=== PATIENT | female | born 1990 | race Caucasian/White ===

== ENCOUNTER 2017-10-12 17:48 | Day surgery (SDC) | payer OTHER ==
[2017-10-12] MEDS ORDERED: HYDROmorphone 0.5 MG/0.5 ML SYRINGE IVPUSH ONE (18:07)
[2017-10-12] MEDS ORDERED: Sodium Chloride 0.9% 1,000 ML IV ONE (18:07)
--- NOTE | 2017-10-12 18:40 | EDM.PDOC ---
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 Patient is approximately 11 weeks . Last menstrual cycle was July 23, 2017. She states this past Tuesday developed some menstrual-like bleeding. Last night at approximately 2130 developed worsening pain to the right lower quadrant with heavy vaginal bleeding. Patient's been saturating 1 pad per hour since onset last night. She was slightly dizzy with standing and ambulation. Pale in color with admission. She has no history of ectopic pregnancies. She has no history of STDs. hx. . Pain is sharp in nature moderate to severe in intensity. Her blood type is B+. She has not been evaluated by WHEEL ADJUSTER specialist since finding out she was . 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 Denies: Vomiting : Denies: Dysuria Skin: Reports: Pallor Neurological: Reports: Dizziness ED EXAM - Physical Exam Exam: See Below Exam Limited By: No Limitations General Appearance: Alert, WD/WN, Mild Distress Ears: Hearing Grossly Normal Nose: Normal Inspection Throat/Mouth: Normal Voice, No Airway Compromise Neck: Normal Inspection, Supple Respiratory/Chest: No Respiratory Distress, Lungs Clear, Normal Breath Sounds Cardiovascular: Normal Peripheral Pulses, Tachycardia GI/Abdominal Exam: Normal Bowel Sounds, Soft, No Organomegaly, No Distention, Tender (Right adnexa region: moderate to severe in nature with palpation. Mild pain to the suprapubic region. ) (Female) Exam: Other (Per nursing staff. Pad in place saturaing through underwear. ) Extremities: Normal Inspection Neurological: Alert, Oriented, CN II-XII Intact, Normal Cognition, No Motor/ Sensory Deficits Psychiatric: Normal Affect, Normal Mood Skin Exam: Warm, Dry, Intact, Normal Color Course - Vital Signs Last Recorded V/S: Last Vital Signs Temp 97.9 F 10/12/17 21:45 Pulse 69 10/12/17 21:45 Resp 13 10/12/17 21:45 BP 105/66 10/12/17 21:45 Pulse Ox 100 10/12/17 21:45 - Orders/Labs/Meds Orders: Active Orders 24 hr Category Date Time Status Patient Status [ADT] Routine ADT 10/12/17 19:20 Active Ambulate [RC] PER UNIT ROUTINE Care 10/12/17 20:41 Active Communication Order [RC] ROUTINE Care 10/12/17 20:35 Active Cooling Warming Measures [RC] ASDIRECTED Care 10/12/17 20:35 Active Notify Provider [RC] ASDIRECTED Care 10/12/17 20:35 Active Notify Provider [RC] ASDIRECTED Care 10/12/17 20:42 Active Oxygen Therapy [RC] ASDIRECTED Care 10/12/17 20:35 Active Pulse Oximetry [RC] ASDIRECTED Care 10/12/17 20:35 Active Ready for Discharge [RC] PER UNIT ROUTINE Care 10/12/17 20:45 Active Regular Diet [DIET] Diet 10/13/17 Breakfast Active PACKED CELLS [RED BLOOD CELLS LP] [BBK] Stat Lab 10/12/17 18:10 Results TYPE AND SCREEN [BBK] Stat Lab 10/12/17 18:10 Results UA W/MICROSCOPIC [URIN] Stat Lab 10/12/17 18:06 Ordered Acetaminophen/oxyCODONE [Percocet 325-5 MG] Med 10/12/17 20:42 Active 2 tab PO Q4H PRN HYDROmorphone [Dilaudid] Med 10/12/17 20:36 Active 0.5 mg IVPUSH ONETIME PRN Ondansetron [Zofran] Med 10/12/17 20:35 Active 4 mg IVPUSH ONETIME PRN Ondansetron [Zofran] Med 10/12/17 20:42 Active 4 mg IVPUSH Q4H PRN Phenylephrine [Rufus-Synephrine] 1 mg Med 10/12/17 20:45 Active Sodium Chloride 0.9% [Normal Saline] 10 ml IV TITRATE ePHEDrine [ePHEDrine Sulfate] Med 10/12/17 20:35 Active 5 mg IVPUSH ASDIRECTED PRN fentaNYL [Sublimaze] Med 10/12/17 20:35 Active 50 mcg IVPUSH Q5M PRN Schedule Procedure [COMM] Stat Oth 10/12/17 19:18 Ordered Sequential Compression Device [OM.PC] Routine Oth 10/12/17 20:42 Ordered Transfuse Red Blood Cells [COMM] Stat Oth 10/12/17 19:14 Ordered Medication Orders Ephedrine Sulfate (Ephedrine Sulfate) 5 mg IVPUSH ASDIRECTED PRN PRN Reason: Hypotension Fentanyl (Sublimaze) 50 mcg IVPUSH Q5M PRN PRN Reason: Pain Last Admin: 10/12/17 21:05 Dose: 50 mcg Hydromorphone HCl (Dilaudid) 0.5 mg IVPUSH ONETIME PRN PRN Reason: Pain Last Admin: 10/12/17 21:03 Dose: 0.5 mg Phenylephrine HCl 1 mg/ Sodium (Chloride) 10.1 mls @ 1 mls/sec IV TITRATE PAUL; Protocol Ondansetron HCl (Zofran) 4 mg IVPUSH ONETIME PRN PRN Reason: Nausea/Vomiting Ondansetron HCl (Zofran) 4 mg IVPUSH Q4H PRN PRN Reason: Nausea Oxycodone/Acetaminophen (Percocet 325-5 Mg) 2 tab PO Q4H PRN PRN Reason: Pain Last Admin: 10/12/17 22:38 Dose: 2 tab Labs: Laboratory Tests 10/12/17 10/12/17 10/12/17 Range/Units 18:10 18:10 18:10 WBC 11.36 H (3.98-10.04) K/mm3 RBC 3.66 L (3.98-5.22) M/mm3 Hgb 10.7 L (11.2-15.7) gm/L Hct 32.0 L (34.1-44.9) % MCV 87.4 (79.4-94.8) fl MCH 29.2 (25.6-32.2) pg MCHC 33.4 (32.2-35.5) g/dl RDW Std Deviation 41.8 (36.4-46.3) fL Plt Count 244 (182-369) K/mm3 MPV 10.1 (9.4-12.3) fl Neutrophils % (Manual) 88 H (40-60) % Band Neutrophils % 0 (0-10) % Lymphocytes % (Manual) 8 L (20-40) % Atypical Lymphs % 0 % Monocytes % (Manual) 3 (2-10) % Eosinophils % (Manual) 1 (0.7-5.8) % Basophils % (Manual) 0 L (0.1-1.2) Toxic Granulation 1+ slight Platelet Estimate Adequate Plt Morphology Comment Normal RBC Morph Comment Normal PT (9.5-12.1) SECONDS INR APTT (24-31) SECONDS Sodium 138 (136-145) mEq/L Potassium 3.4 L (3.5-5.1) mEq/L Chloride 106 (98-107) mEq/L Carbon Dioxide 21 (21-32) mEq/L Anion Gap 14.4 (5-15) BUN 15 (7-18) mg/dL Creatinine 0.7 (0.55-1.02) mg/dL Est Cr Clr Drug Dosing 104.65 mL/min Estimated GFR (MDRD) > 60 (>60) mL/min BUN/Creatinine Ratio 21.4 H (14-18) Glucose 132 H (74-106) mg/dL Calcium 8.5 (8.5-10.1) mg/dL Total Bilirubin 0.4 (0.2-1.0) mg/dL AST 16 (15-37) U/L ALT 23 (14-59) U/L Alkaline Phosphatase 53 (46-116) U/L Total Protein 6.8 (6.4-8.2) g/dl Albumin 3.6 (3.4-5.0) g/dl Globulin 3.2 gm/dL Albumin/Globulin Ratio 1.1 (1-2) Progesterone ng/mL HCG, Quant 893.0 mIU/mL Blood Type B POSITIVE Gel Antibody Screen Negative Crossmatch See Detail 10/12/17 10/12/17 Range/Units 18:10 18:10 WBC (3.98-10.04) K/mm3 RBC (3.98-5.22) M/mm3 Hgb (11.2-15.7) gm/L Hct (34.1-44.9) % MCV (79.4-94.8) fl MCH (25.6-32.2) pg MCHC (32.2-35.5) g/dl RDW Std Deviation (36.4-46.3) fL Plt Count (182-369) K/mm3 MPV (9.4-12.3) fl Neutrophils % (Manual) (40-60) % Band Neutrophils % (0-10) % Lymphocytes % (Manual) (20-40) % Atypical Lymphs % % Monocytes % (Manual) (2-10) % Eosinophils % (Manual) (0.7-5.8) % Basophils % (Manual) (0.1-1.2) Toxic Granulation Platelet Estimate Plt Morphology Comment RBC Morph Comment PT 10.5 (9.5-12.1) SECONDS INR 0.96 APTT 27 (24-31) SECONDS Sodium (136-145) mEq/L Potassium (3.5-5.1) mEq/L Chloride (98-107) mEq/L Carbon Dioxide (21-32) mEq/L Anion Gap (5-15) BUN (7-18) mg/dL Creatinine (0.55-1.02) mg/dL Est Cr Clr Drug Dosing mL/min Estimated GFR (MDRD) (>60) mL/min BUN/Creatinine Ratio (14-18) Glucose (74-106) mg/dL Calcium (8.5-10.1) mg/dL Total Bilirubin (0.2-1.0) mg/dL AST (15-37) U/L ALT (14-59) U/L Alkaline Phosphatase (46-116) U/L Total Protein (6.4-8.2) g/dl Albumin (3.4-5.0) g/dl Globulin gm/dL Albumin/Globulin Ratio (1-2) Progesterone 1.99 ng/mL HCG, Quant mIU/mL Blood Type Gel Antibody Screen Crossmatch Meds: Medications Generic Name Dose Route Start Last Admin Trade Name Freq PRN Reason Stop Dose Admin Ephedrine Sulfate 5 mg 10/12/17 20:35 Ephedrine Sulfate IVPUSH ASDIRECTED PRN Hypotension Fentanyl 50 mcg 10/12/17 20:35 10/12/17 21:05 Sublimaze IVPUSH 50 mcg Q5M PRN Administration Pain Hydromorphone HCl 0.5 mg 10/12/17 20:36 10/12/17 21:03 Dilaudid IVPUSH 0.5 mg ONETIME PRN Administration Pain Phenylephrine HCl 1 mg/ Sodium 10.1 mls @ 1 mls/sec 10/12/17 20:45 Chloride IV TITRATE PAUL Protocol Ondansetron HCl 4 mg 10/12/17 20:35 Zofran IVPUSH ONETIME PRN Nausea/Vomiting Ondansetron HCl 4 mg 10/12/17 20:42 Zofran IVPUSH Q4H PRN Nausea Oxycodone/Acetaminophen 2 tab 10/12/17 20:42 10/12/17 22:38 Percocet 325-5 Mg PO 2 tab Q4H PRN Administration Pain Discontinued Medications Generic Name Dose Route Start Last Admin Trade Name Freq PRN Reason Stop Dose Admin Bupivacaine HCl Confirm 10/12/17 20:00 10/12/17 19:59 Marcaine 0.5% Administered 10/12/17 20:01 10 ml Dose Administration 30 ml .ROUTE .STK-MED ONE Cefazolin Sodium Confirm 10/12/17 19:21 Ancef Administered 10/12/17 19:22 Dose 2 gm .ROUTE .STK-MED ONE Dexamethasone Confirm 10/12/17 19:21 Dexamethasone Administered 10/12/17 19:22 Dose 20 mg .ROUTE .STK-MED ONE Etomidate Confirm 10/12/17 19:38 Amidate Administered 10/12/17 19:39 Dose 40 mg IVPUSH .STK-MED ONE Fentanyl Confirm 10/12/17 19:22 Sublimaze Administered 10/12/17 19:23 Dose 250 mcg .ROUTE .STK-MED ONE Glycopyrrolate Confirm 10/12/17 20:14 Administered 10/12/17 20:15 Dose 1 mg .ROUTE .STK-MED ONE Hydromorphone HCl 0.5 mg 10/12/17 18:07 10/12/17 18:20 Dilaudid IVPUSH 10/12/17 18:08 0.5 mg ONETIME ONE Administration Hydromorphone HCl Confirm 10/12/17 21:04 10/12/17 22:28 Dilaudid Administered 10/12/17 21:05 Not Given Dose 0.5 mg .ROUTE .STK-MED ONE Sodium Chloride 1,000 mls @ 250 mls/hr 10/12/17 18:07 10/12/17 18:20 Normal Saline IV 10/12/17 22:06 250 mls/hr ONETIME ONE Administration Sodium Chloride Confirm 10/12/17 18:47 10/12/17 22:27 Normal Saline Administered 10/12/17 18:48 Not Given Dose 1,000 mls @ as directed .ROUTE .STK-MED ONE Lidocaine HCl Confirm 10/12/17 19:21 Xylocaine-Mpf 1% Administered 10/12/17 19:22 Dose 4 mls @ as directed .ROUTE .STK-MED ONE Lactated Ringer's Confirm 10/12/17 19:21 Ringers, Lactated Administered 10/12/17 19:22 Dose 2,000 mls @ as directed .ROUTE .STK-MED ONE Ketamine HCl Confirm 10/12/17 19:55 Ketalar Administered 10/12/17 19:56 Dose 500 mg .ROUTE .STK-MED ONE Ketorolac Tromethamine Confirm 10/12/17 19:21 Toradol Administered 10/12/17 19:22 Dose 30 mg .ROUTE .STK-MED ONE Midazolam HCl Confirm 10/12/17 19:22 Versed 1 Mg/Ml Administered 10/12/17 19:23 Dose 2 mg .ROUTE .STK-MED ONE Neostigmine Methylsulfate Confirm 10/12/17 20:14 Neostigmine Administered 10/12/17 20:15 Dose 5 mg .ROUTE .STK-MED ONE Ondansetron HCl Confirm 10/12/17 19:21 Zofran Administered 10/12/17 19:22 Dose 4 mg .ROUTE .STK-MED ONE Phenylephrine HCl Confirm 10/12/17 19:56 Phenylephrine In Ns 100 Mcg/Ml Administered 10/12/17 19:57 Dose 1 mg .ROUTE .STK-MED ONE Propofol Confirm 10/12/17 19:21 Diprivan 20 Ml Administered 10/12/17 19:22 Dose 200 mg .ROUTE .STK-MED ONE Rocuronium Hatch Confirm 10/12/17 19:21 Zemuron Administered 10/12/17 19:22 Dose 50 mg .ROUTE .STK-MED ONE - Re-Assessments/Exams Free Text/Narrative Re-Assessment/Exam: On initial examination patient's blood pressure 110/75 with heart rate of 116. Patient's skin is pink warm and dry. Per nursing staff with standing patient was pale improved with laying flat. 2 x IV's ordered. NS ordered 250mls/hr. Ordered dilaudid 0.5mg IVP. Concerned the patient may have a ruptured ectopic with pain and VS findings. Initial labs include: CBC, C14, HCG, INR, PTT, Type and Screen, UA, OB transvaginal ultrasound. I did speak with Dr. Ortiz at 181. Requested progesterone level, quantitative hCG, and ultrasound be obtained. Notify him if any changes and results. 1814 reassessment, blood pressure 98/67 heart rate 98. This was after administration of the Dilaudid. Patient states pain is improving. She is alittle bit dizzy. Color remains good. 1827 I was asked to come to the patients room since she was decompensating. Upon examination patient is pale responsive only to painful stimuli. BP reading 75 systolic, HR 54. Patient placed into trendelenburg with IVF's 2 liters placed on pressure infusers wide open. With Inversion patients loc inproved. Color remains poor. Vaginal bleeding per nursing staff has increased. Patient moved to room 2. I have called Dr. Ortiz due to patient decompensating. Ordered type and cross 2 units. 1844 Reassessment, patient's blood pressure 99/62 heart rate 83 SPO2 100%. Dr. Ortiz is present at patients bedside. 19:07 Dr. Ortiz will be taking the patient to surgery to evaluate for ectopic . Departure - Departure Time of Disposition: 19:07 Disposition: DC/Tfer to Critical Access 66 Condition: Fair Clinical Impression: Vaginal bleeding during , Adnexal tenderness, right, Hemorrhagic shock - Discharge Information - My Orders Last 24 Hours: My Active Orders 10/12/17 18:06 UA W/MICROSCOPIC [URIN] Stat 10/12/17 18:10 PACKED CELLS [RED BLOOD CELLS LP] [BBK] Stat TYPE AND SCREEN [BBK] Stat 10/12/17 19:14 Transfuse Red Blood Cells [COMM] Stat - Assessment/Plan Last 24 Hours: My Active Orders 10/12/17 18:06 UA W/MICROSCOPIC [URIN] Stat 10/12/17 18:10 PACKED CELLS [RED BLOOD CELLS LP] [BBK] Stat TYPE AND SCREEN [BBK] Stat 10/12/17 19:14 Transfuse Red Blood Cells [COMM] Stat
[2017-10-12] MEDS ORDERED: Sodium Chloride 0.9% 1,000 ML ONE (18:47)
--- NOTE | 2017-10-12 19:12 | PCM.PREANE ---
Preanesthetic Assessment - Anesthesia/Transfusion/Family Hx Anesthesia History: Prior Anesthesia Without Reaction Family History of Anesthesia Reaction: No Transfusion History: No Prior Transfusion(s) Intubation History: Unknown - Review of Systems General: No Symptoms Pulmonary: No Symptoms Cardiovascular: No Symptoms Gastrointestinal: No Symptoms Neurological: No Symptoms Other: Reports: None - Physical Assessment NPO Status Date: 10/11/17 Pulse: 116 O2 Sat by Pulse Oximetry: 100 Respiratory Rate: 20 Blood Pressure: 110/75 Temperature: 37.4 C Vital Signs: Last Vital Signs Temp 37.4 C 10/12/17 18:03 Pulse 116 H 10/12/17 18:03 Resp 20 10/12/17 18:03 BP 110/75 10/12/17 18:03 Pulse Ox 100 10/12/17 18:03 Height: 1.63 m Weight: 54.431 kg ASA Class: 3E Mental Status: Alert & Oriented x3 Airway Class: Mallampati = 2 Dentition: Reports: Normal Dentition, Caries Thyro-Mental Finger Breadths: 3 Mouth Opening Finger Breadths: 3 ROM/Head Extension: Full Lungs: Clear to Auscultation, Normal Respiratory Effort Cardiovascular: Regular Rate, Regular Rhythm, No Murmurs - Lab Values: Laboratory Last Values WBC 11.36 K/mm3 (3.98-10.04) H 10/12/17 18:10 RBC 3.66 M/mm3 (3.98-5.22) L 10/12/17 18:10 Hgb 10.7 gm/L (11.2-15.7) L 10/12/17 18:10 Hct 32.0 % (34.1-44.9) L 10/12/17 18:10 MCV 87.4 fl (79.4-94.8) 10/12/17 18:10 MCH 29.2 pg (25.6-32.2) 10/12/17 18:10 MCHC 33.4 g/dl (32.2-35.5) 10/12/17 18:10 RDW Std Deviation 41.8 fL (36.4-46.3) 10/12/17 18:10 Plt Count 244 K/mm3 (182-369) 10/12/17 18:10 MPV 10.1 fl (9.4-12.3) 10/12/17 18:10 Neutrophils % (Manual) 88 % (40-60) H 10/12/17 18:10 Band Neutrophils % 0 % (0-10) 10/12/17 18:10 Lymphocytes % (Manual) 8 % (20-40) L 10/12/17 18:10 Atypical Lymphs % 0 % 10/12/17 18:10 Monocytes % (Manual) 3 % (2-10) 10/12/17 18:10 Eosinophils % (Manual) 1 % (0.7-5.8) 10/12/17 18:10 Basophils % (Manual) 0 (0.1-1.2) L 10/12/17 18:10 Toxic Granulation 1+ slight 10/12/17 18:10 Platelet Estimate Adequate 10/12/17 18:10 Plt Morphology Comment Normal 10/12/17 18:10 RBC Morph Comment Normal 10/12/17 18:10 Sodium 138 mEq/L (136-145) 10/12/17 18:10 Potassium 3.4 mEq/L (3.5-5.1) L 10/12/17 18:10 Chloride 106 mEq/L (98-107) 10/12/17 18:10 Carbon Dioxide 21 mEq/L (21-32) 10/12/17 18:10 Anion Gap 14.4 (5-15) 10/12/17 18:10 BUN 15 mg/dL (7-18) 10/12/17 18:10 Creatinine 0.7 mg/dL (0.55-1.02) 10/12/17 18:10 Est Cr Clr Drug Dosing 104.65 mL/min 10/12/17 18:10 Estimated GFR (MDRD) > 60 mL/min (>60) 10/12/17 18:10 BUN/Creatinine Ratio 21.4 (14-18) H 10/12/17 18:10 Glucose 132 mg/dL (74-106) H 10/12/17 18:10 Calcium 8.5 mg/dL (8.5-10.1) 10/12/17 18:10 Total Bilirubin 0.4 mg/dL (0.2-1.0) 10/12/17 18:10 AST 16 U/L (15-37) 10/12/17 18:10 ALT 23 U/L (14-59) 10/12/17 18:10 Alkaline Phosphatase 53 U/L (46-116) 10/12/17 18:10 Total Protein 6.8 g/dl (6.4-8.2) 10/12/17 18:10 Albumin 3.6 g/dl (3.4-5.0) 10/12/17 18:10 Globulin 3.2 gm/dL 10/12/17 18:10 Albumin/Globulin Ratio 1.1 (1-2) 10/12/17 18:10 HCG, Quant 893.0 mIU/mL 10/12/17 18:10 Blood Type B POSITIVE 10/12/17 18:10 All labs reviewed and noted and within acceptable ranges to proceed. 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 History: 3 vaginal deliveries - SUBSTANCE USE Smoking Status *Q: Never Smoker Recreational Drug Use History: No - HOME MEDS Home Medications: Home Meds Pnv95/Iron Fum/Folic Acid [ Caplet] 1 each PO DAILY 08/15/15 [History] Ibuprofen 600 mg PO Q4H PRN #20 tablet 10/12/17 [Rx] - CURRENT (IN HOUSE) MEDS Current Meds: Current Medications Sodium Chloride (Normal Saline) 1,000 mls @ 250 mls/hr IV ONETIME ONE Stop: 10/12/17 22:06 Last Admin: 10/12/17 18:20 Dose: 250 mls/hr Discontinued Medications Hydromorphone HCl (Dilaudid) 0.5 mg IVPUSH ONETIME ONE Stop: 10/12/17 18:08 Last Admin: 10/12/17 18:20 Dose: 0.5 mg Sodium Chloride (Normal Saline) Confirm Administered Dose 1,000 mls @ as directed .ROUTE .STK-MED ONE Stop: 10/12/17 18:48
[2017-10-12] MEDS ORDERED: Ketorolac 30 MG/ML SDV ONE (19:21)
[2017-10-12] MEDS ORDERED: Lidocaine 1% 4 ML ONE (19:21)
[2017-10-12] MEDS ORDERED: Rocuronium 50 MG/5 ML Vial ONE (19:21)
[2017-10-12] MEDS ORDERED: Ondansetron 4 MG/2 ML SDV ONE (19:21)
[2017-10-12] MEDS ORDERED: Dexamethasone 4 MG/ML 5 ML MDV ONE (19:21)
[2017-10-12] MEDS ORDERED: Propofol 200 MG/20 ML SDV ONE (19:21)
[2017-10-12] MEDS ORDERED: ceFAZolin 1 GM Vial ONE (19:21)
[2017-10-12] MEDS ORDERED: Lactated Ringers 2,000 ML ONE (19:21)
[2017-10-12] MEDS ORDERED: fentaNYL 250 MCG/5 ML SDV ONE (19:22)
[2017-10-12] MEDS ORDERED: Midazolam 1 MG/ML 2 ML SDV ONE (19:22)
--- NOTE | 2017-10-12 19:35 | PCM.LDHP ---
L&D History of Present Illness - General Date of Service: 10/12/17 Admit Problem/Dx: Patient Status Order with Admit Dx/Problem 10/12/17 19:20 Patient Status [ADT] Routine Admission Diagnosis/Problem Admission Diagnosis/Problem Laparotomy 10/12/17 19:28 Cecille is a 27-year-old 4 now para 3003 white female who is evaluated in the emergency room for complaints of right lower quadrant pain, positive test, uterine bleeding in general feeling of unwell. Serum quantitative beta hCG was 893 million units per milliliter. Patient is leaving rather aggressively vaginally. She became hypotensive with an increased pulse rate and her blood pressures to level not obtainable. 2 IVs were started and patient was bolused with 3+ liters of normal saline. With Trendelenburg patient' s blood pressure returned to near normal pulse rate was in the high 90s and low 100s. Patient was alert and oriented after this and was able to give a good history. She reports her last menstrual period to be relatively certain starting on 07/23/2017, not using any control at time of conception. She has had positive symptoms such as fatigue and some breast tenderness. And pain started approximately 2-3 days ago and today patient's been in moderate to severe pain discriminated as 7 on a scale of 10. His right lower quadrant in location. It is sharp in nature. Eating or aggravating factors other than aggravated with activity. Patient last ate yesterday but didn't take some ibuprofen today. This with a sip of water this afternoon. 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 All babies delivered vaginally. Sexually active. No control. No history of STI's or abnormal Pap smears. Allergies: none Medications: none Family history: Mother is alive and well as his father. Patient has 15 siblings which included 8 voice and 7 girls who are alive and well. Paternal grandmother is alive and well. All grandparents are . Paternal grandfather secondary to of heart or lung problem as patient describes it to be related to some smoking. Maternal grandparents demise causes unknown. No anesthesia or bleeding problems noted in the family. Social history patient is . is Olivier. She does not use any significant amounts of alcohol, drugs or tobacco. She lives in [facility]. Review of systems: In general patient is having painright lower quadrant, bleeding and general feeling of unwell. Vascular: No chest pain or exercise intolerance Respiratory: No shortness of breath or infectious symptoms GI: Negative for new. : As per history of present illness Musculoskeletal: Negative Physical exam: Patient's blood pressure was unstable. At one point it was in the 80s over 40s and patient became unresponsive. The 90s to low 100s consistently. Orthostatic changes noted. Patient is afebrile. General patient is a well-developed, well-nourished slender White female who is in moderate to severe distress secondary right lower quadrant pain. She is very pale but is alert and oriented and answers questions appropriately. Skin: Pale but dry and intact HEENT neck and back within normal limits. Lungs are clear with good breath sounds in all alcantar. Cardiovascular exam shows regular rate and rhythm. Exam deferred. Abdomen is flat, soft, very tender with palpation right lower quadrant. No masses or organomegaly are noted on abdominal exam. Positive bowel sounds are present. No exam per I managed shows a moderate amount of blood on the glove and in the vaginal vault. It extends onto the perineum. The uterus is approximately 7 weeks' size, soft, anterior and tender. Left adnexa is within normal limits. Right adnexal shows some masslike effect. This is very tender. Extremities and neurological exam are grossly within normal limits. 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/BYN History: 3 vaginal deliveries Social & Family History - Tobacco Use Smoking Status *Q: Never Smoker - Caffeine Use Caffeine Use: Reports: Coffee, Tea - Recreational Drug Use Recreational Drug Use: No H&P Review of Systems - Review of Systems: Review Of Systems: See Below L&D Exam - Exam Exam: See Below - Vital Signs Vital Signs: Last Vital Signs Temp 37.4 C 10/12/17 19:12 Pulse 116 H 10/12/17 18:03 Resp 20 10/12/17 19:12 BP 110/75 10/12/17 19:12 Pulse Ox 100 10/12/17 19:12 Weight: 54.431 kg - Patient Data Lab Results Last 24 hrs: Laboratory Results - last 24 hr 10/12/17 10/12/17 10/12/17 Range/Units 18:10 18:10 18:10 WBC 11.36 H (3.98-10.04) K/mm3 RBC 3.66 L (3.98-5.22) M/mm3 Hgb 10.7 L (11.2-15.7) gm/L Hct 32.0 L (34.1-44.9) % MCV 87.4 (79.4-94.8) fl MCH 29.2 (25.6-32.2) pg MCHC 33.4 (32.2-35.5) g/dl RDW Std Deviation 41.8 (36.4-46.3) fL Plt Count 244 (182-369) K/mm3 MPV 10.1 (9.4-12.3) fl Neutrophils % (Manual) 88 H (40-60) % Band Neutrophils % 0 (0-10) % Lymphocytes % (Manual) 8 L (20-40) % Atypical Lymphs % 0 % Monocytes % (Manual) 3 (2-10) % Eosinophils % (Manual) 1 (0.7-5.8) % Basophils % (Manual) 0 L (0.1-1.2) Toxic Granulation 1+ slight Platelet Estimate Adequate Plt Morphology Comment Normal RBC Morph Comment Normal Sodium 138 (136-145) mEq/L Potassium 3.4 L (3.5-5.1) mEq/L Chloride 106 (98-107) mEq/L Carbon Dioxide 21 (21-32) mEq/L Anion Gap 14.4 (5-15) BUN 15 (7-18) mg/dL Creatinine 0.7 (0.55-1.02) mg/dL Est Cr Clr Drug Dosing 104.65 mL/min Estimated GFR (MDRD) > 60 (>60) mL/min BUN/Creatinine Ratio 21.4 H (14-18) Glucose 132 H (74-106) mg/dL Calcium 8.5 (8.5-10.1) mg/dL Total Bilirubin 0.4 (0.2-1.0) mg/dL AST 16 (15-37) U/L ALT 23 (14-59) U/L Alkaline Phosphatase 53 (46-116) U/L Total Protein 6.8 (6.4-8.2) g/dl Albumin 3.6 (3.4-5.0) g/dl Globulin 3.2 gm/dL Albumin/Globulin Ratio 1.1 (1-2) HCG, Quant 893.0 mIU/mL Blood Type B POSITIVE Gel Antibody Screen Negative Crossmatch See Detail Result Diagrams: 10/12/17 18:10 10/12/17 18:10 Problem List Initiated/Reviewed/Updated: Yes Orders Last 24hrs: Active Orders 24 hr Category Date Time Status Patient Status [ADT] Routine ADT 10/12/17 19:20 Active INR,PT,PROTHROMBIN TIME [COAG] Stat Lab 10/12/17 18:10 Received PACKED CELLS [RED BLOOD CELLS LP] [BBK] Stat Lab 10/12/17 18:10 Results PROGESTERONE [CHEM] Stat Lab 10/12/17 18:10 Received PTT,PARTIAL THROMBOPLSTIN TIME [COAG] Stat Lab 10/12/17 18:10 Received TYPE AND SCREEN [BBK] Stat Lab 10/12/17 18:10 Results UA W/MICROSCOPIC [URIN] Stat Lab 10/12/17 18:06 Ordered Sodium Chloride 0.9% [Normal Saline] 1,000 ml Med 10/12/17 18:07 Active IV ONETIME Schedule Procedure [COMM] Stat Oth 10/12/17 19:18 Ordered Transfuse Red Blood Cells [COMM] Stat Oth 10/12/17 19:14 Ordered Medication Orders Sodium Chloride (Normal Saline) 1,000 mls @ 250 mls/hr IV ONETIME ONE Stop: 10/12/17 22:06 Last Admin: 10/12/17 18:20 Dose: 250 mls/hr Assessment/Plan Comment:: 1. Abdominal/right pelvic pain, positive test with hCG of 893 mU/mL, masslike effect on bimanual exam, hemodynamically unstable significant vaginal bleeding. Findings and history consistent with a probable right ectopic . Cannot entirely rule out threatened versus inevitable miscarriage. 2. Generally healthy female otherwise 3. B+ blood patient not in need of Rh immunoglobulin Plan: 1. Because of the hemodynamically unstable condition will take to the OR immediately. Recommend laparoscopy, possible salpingectomy, possible laparotomy , possible dilation and curettage. The procedures, risks, benefits, alternatives Latonya discussed with patient and her . They appear to understand and wish to proceed. Consent is signed. 2. DVT prophylaxis with SCDs 3. Infection prophylaxis with Ancef 2 g IV preop 4. Patient has been typed and crossmatched 2 units by ER staff. We'll transfuse hemoperitoneum is apparent.
[2017-10-12] MEDS ORDERED: Etomidate 2 MG/ML 20 ML SDV IVPUSH ONE (19:38)
[2017-10-12] MEDS ORDERED: Ketamine 500 mg/10 ML MDV ONE (19:55)
[2017-10-12] MEDS ORDERED: Phenylephrine/Normal Saline 100 MCG/ML 10 ML Syringe ONE (19:56)
[2017-10-12] MEDS ORDERED: Bupivacaine 0.5% 30 ML SDV ONE (20:00)
[2017-10-12] MEDS ORDERED: Neostigmine Methylsulfate 1 MG/ML 5 ML Syringe ONE (20:14)
[2017-10-12] MEDS ORDERED: fentaNYL 100 MCG/2 ML SDV IVPUSH PRN (20:35)
[2017-10-12] MEDS ORDERED: Ondansetron 4 MG/2 ML SDV IVPUSH PRN ×2 (20:35→20:42)
[2017-10-12] MEDS ORDERED: ePHEDrine 50 MG/ML SDV IVPUSH PRN (20:35)
[2017-10-12] MEDS ORDERED: HYDROmorphone 0.5 MG/0.5 ML SYRINGE IVPUSH PRN (20:36)
--- NOTE | 2017-10-12 20:41 | PCM.OPNOTE ---
- General Post-Op/Procedure Note Date of Surgery/Procedure: 10/12/17 Operative Procedure(s): Laparoscopy, dilation and suction curettage Findings: On laparoscopy the uterus tubes and ovaries appeared be normal. There is no evidence of ectopic or tubal prudency. Anterior posterior cul-de-sac was unremarkable. The appendix appeared flaccid and noninflamed. Liver edges on right and left lobe were unremarkable and without inflammation. Evidence of ectopic present. Very small amount of blood was noted in the posterior cul-de-sac. This was physiologic in amount. Pre Op Diagnosis: 1. Vaginal bleeding, positive patency test, right lower quadrant pain, right adnexal mass, hemodynamically unstableprobable right tubal Post-Op Diagnosis: Incomplete spontaneous Anesthesia Technique: General ET Tube Other Anesthesia Type: Marcaine 0.5% locally at the laparoscopic port sites Primary Surgeon: Arden Ortiz Secondary Surgeon: Celeste Carson Anesthesia Provider: Milana Abraham Reason Personal Development Coach Was Necessary: Retraction, assistance, patient safety, quality of care Role of Personal Development Coach: retraction. Pathology: Vaginal tissue and endometrial curettings sent as one specimen Fluid Replacement, Intraop: 2,500 Output, Urine Amount: 850 EBL in mLs: 20 Drain/Tube Comments:: Indwelling bladder catheter during surgery only. Complications: None Condition: Good Free Text/Narrative:: Intake & Output 10/12/17 10/12/17 10/12/17 06:59 14:59 22:59 Intake Total 0 Balance 0 Surgery duration: 28 minutes Procedure: The patient was taken to the operating room and placed in supine position on the operative table. She had sequential compression stockings in place for DVT prophylaxis and had been given 2 g of Ancef IV for infection prophylaxis. She was administered general endotracheal anesthesia. After administration of anesthesia the patient was placed in dorsal lithotomy position and prepped and draped in usual fashion. An indwelling bladder catheter was placed as was a uterine manipulator. It should be noted the uterus sounded to 10 cm and was noted to be anterior and mid position. Infraumbilical incision site and suprapubic site were then infiltrated with approximately 3-4 mL of Marcaine 0.5%. 5 mm incisions were made in these areas. Varies needle was placed in the infraumbilical incision site and pneumoperitoneum was established was in 2 L of CO2. The laparoscopic sleeve was then placed as was the scope. Under direct visualization the suprapubic site was developed with a 5 mm port. Pelvis was evaluated findings as above. Anatomy otherwise was unremarkable. There was no evidence of ectopic . The lower sleeve having been removed under direct visualization. The upper port was removed and the incisions were closed with single subcuticular interrupted suture of 3-0 Monocryl. The incisions were further approximated with Dermabond skin glue. A weighted speculum was placed in the vagina. Cervix is found to be dilated to approximately 1 centimeters. Uterus was sounded to approximately 10 cm. It was found to be anterior and mid position. An 10 mm suction curette was then introduced in routine fashion the endometrial cavity was evacuated. Moderate amount tissue was obtained. Findings consistent with products of conception. A medium size sharp curet was introduced and very careful fashion the endometrial cavity was curetted. It was be clear of any further tissue. The suction curet was then reintroduced and small and blood was removed. No further tissue was removed. This point the D&C was discontinued. The single-toothed tenaculum used to stabilize the anterior lip the cervix was removed. Blood was removed from the vagina with a stick sponge and the weighted speculum was removed from the vagina. The Helton catheter removed. Patient was returned to the supine position and awakened from general endotracheal anesthesia. She left the operating room in good condition.
[2017-10-12] MEDS ORDERED: Acetaminophen/oxyCODONE 325-5 MG Tab PO PRN (20:42)
[2017-10-12] MEDS ORDERED: Phenylephrine 1 MG in Sodium Chloride 0.9% 10 ML IV SCH (20:45)
--- NOTE | 2017-10-12 20:59 | PCM.POSTAN ---
POST ANESTHESIA ASSESSMENT - MENTAL STATUS Mental Status: Alert - VITAL SIGNS Pulse Rate: 90 SaO2: 98 Resp Rate: 13 Blood Pressure: 101/65 Temperature: 36.3 C - RESPIRATORY Respiratory Status: Respiratory Rate WNL, Airway Patent, O2 Saturation Stable, Supplemental Oxygen - CARDIOVASCULAR CV Status: Pulse Rate WNL, Blood Pressure Stable - GASTROINTESTINAL GI Status: No Symptoms - POST OP HYDRATION Hydration Status: Adequate & Stable
[2017-10-12] MEDS ORDERED: HYDROmorphone 0.5 MG/0.5 ML Syringe ONE (21:04)
[2017-10-13 00:20] VITALS: BP 98/70
== END 2017-10-12 23:53 | disposition home or self-care (01) ==
LOC: SUPCPDRO 17:48 → JD.ED 17:48 → JD.SDS 19:33
PROVIDERS: ATTEND Obstetrics & Gynecology
DX: O03.4 Incomplete spontaneous abortion without complication (principal)
CPT/HCPCS: 36415; 59812; 80053; 84144; 84702; 85007; 85027; 85610; 85730; 86850; 86900; 86901; 86922; 96361; 96374; 99285; A9270; J0690; J1100; J1170; J1885; J2250; J2370; J2405; J2710; J3010; J3490; J7040; J7120; 00840; 36430; J2001; J2704; P9016